=== PATIENT | female | born 1995 ===

== ENCOUNTER 2017-08-22 06:24 | Inpatient (IN) ==
[2017-08-22] MEDS ORDERED: FAMOTIDINE 20 MG/2 ML VIAL IV ONE (07:43)
[2017-08-22] MEDS ORDERED: ceFAZolin 2,000 MG in PREMIX 1 EACH IV ONE (07:43)
[2017-08-22] MEDS ORDERED: CITRIC ACID/SODIUM CITRATE 30 ML UDCUP PO ONE (07:43)
[2017-08-22] MEDS ORDERED: LACTATED RINGERS 1,000 ML IV ONE (07:46)
[2017-08-22] MEDS ORDERED: OXYTOCIN/LR 20 UNIT/1,000 ML BAG IV ONE ×2 (07:59→10:41)
[2017-08-22] MEDS ORDERED: LACTATED RINGERS 1,000 ML IV SCH ×2 (08:00→11:00)
[2017-08-22 08:15] LABS: Basophils % 0.2 % (0.0-0.8); Eosinophils # 0.1 10*3/uL (0.0-0.87); Eosinophils % 1.6 % (0.00-10.9); Hematocrit 33.1 VOL% (35.7-47.0); Hemoglobin 11.3 GM/DL (12.0-16.0); Immature Granulocytes % 0.7 %; Immature Granulocytes Absolute 0.06 #; Lymphocytes # 1.9 10*3/uL (1.4-4.0); Lymphocytes % 23.6 % (21.3-54.2); Mean Corpuscular HGB Conc 34.1 GM/DL (32-36); Mean Corpuscular Hemoglobin 30 PG (27-34); Mean Corpuscular Volume 88.5 FL (87-102); Mean Platelet Volume 12.6 FL (9.6-12.0); Monocytes # 0.5 10*3/uL (0.11-0.8); Monocytes % 6.3 % (1.7-12.7); Neutrophils # 5.5 10*3/uL (1.4-7.4); Neutrophils % 67.6 % (38.7-73.9); Platelet Count 132 T/CUMM (130-400); Red Blood Count 3.74 MC/CUMM (3.8-5.5); Red Cell Distribution Width 13.4 % (9.3-17.3); White Blood Count 8.1 T/CUMM (4-12)
[2017-08-22 08:33] LABS: INR 0.9; PT Patient Result 9.4 SECS; Partial Thromboplastin Time 30.8 SECS (0-40)
[2017-08-22 08:36] LABS: Alanine Aminotransferase 10 U/L (13-56); Albumin 2.7 G/DL (3.4-5.0); Alkaline Phosphatase 176 U/L (45-117); Aspartate Amino Transferase 15 U/L (0-37); Bilirubin,Total < 0.39 MG/DL (0.2-1.0); Blood Urea Nitrogen 10 MG/DL (7-18); Calcium 8.3 MG/DL (8.5-10.1); Glucose 71 MG/DL (74-106); Osmolality,Calculated 273.5 MOS/KG (273-304); Potassium 3.9 MMOL/L (3.5-5.1); Sodium 139 MMOL/L (136-145); Total Protein 6.3 G/DL (6.4-8.3)
[2017-08-22] MEDS ORDERED: BUPIVACAINE SPINAL 0.75% 2 ML AMP SPINAL ONE (09:44)
[2017-08-22 10:40] LABS: Apearance,Urine CLEAR (Clear); Bacteria,Urine Occasional /HPF (Few); Bilirubin,Urine Negative (Negative); Blood, Urine Negative (Negative); Glucose,Urine (UA) Negative (Negative); Ketones,Urine 5 mg/dL (Negative); Mucus,Urine Occasional /LPF (Occasional); Nitrite,Urine Negative (Negative); Protein,Urine Negative; RBC,Urine 2 /HPF (0-4); Squamous Epithelial Cell,Urine Occasional /HPF (0-10); Urine Color Yellow (Yellow); Urine Specific Gravity 1.011 (1.001-1.035); Urine Urobilinogen < 2.0 EU/DL (0.2-1.0); WBC,Urine <1 /HPF (0-6)
[2017-08-22] MEDS ORDERED: RHO(D) IMMUNE GLOBULIN 300 MCG SYRINGE IM ONE (10:41)
[2017-08-22] MEDS ORDERED: SIMETHICONE CHEW 80 MG TABLET PO PRN (10:41)
[2017-08-22] MEDS ORDERED: ACETAMINOPHEN 325 MG TABLET PO PRN (10:41)
[2017-08-22] MEDS ORDERED: ONDANSETRON 4 MG/2 ML VIAL IV PRN (10:41)
[2017-08-22] MEDS ORDERED: MAGNESIUM HYDROXIDE SUSP 30 ML UDCUP PO PRN (10:41)
[2017-08-22] MEDS ORDERED: ONDANSETRON 4 MG/2 ML VIAL ONE (11:00)
[2017-08-22] MEDS ORDERED: ceFAZolin 1,000 MG in SYRINGE 1 EACH IV SCH (11:00)
[2017-08-22] MEDS ORDERED: MORPHINE 10 MG/10 ML VIAL ONE (11:00)
[2017-08-22] MEDS ORDERED: PHENYLEPHRINE 1 MG/10 ML SYRINGE IV ONE (11:01)
[2017-08-22] MEDS: ceFAZolin 1,000 MG in SYRINGE 1 EACH IV SCH (18:01)
[2017-08-22] MEDS ORDERED: miSOPROStol 200 MCG TABLET VAG ONE (18:30)
[2017-08-22 21:27] LABS: Basophils % 0.1 % (0.0-0.8); Eosinophils % 0.2 % (0.00-10.9); Hemoglobin 9.6 GM/DL (12.0-16.0); Immature Granulocytes % 0.5 %; Immature Granulocytes Absolute 0.06 #; Lymphocytes # 1.6 10*3/uL (1.4-4.0); Lymphocytes % 13.2 % (21.3-54.2); Mean Corpuscular HGB Conc 34.3 GM/DL (32-36); Mean Corpuscular Hemoglobin 30 PG (27-34); Mean Corpuscular Volume 88.3 FL (87-102); Mean Platelet Volume 11.9 FL (9.6-12.0); Monocytes # 0.4 10*3/uL (0.11-0.8); Monocytes % 3.3 % (1.7-12.7); Neutrophils # 9.8 10*3/uL (1.4-7.4); Neutrophils % 82.7 % (38.7-73.9); Platelet Count 118 T/CUMM (130-400); Red Blood Count 3.17 MC/CUMM (3.8-5.5); Red Cell Distribution Width 13.3 % (9.3-17.3); White Blood Count 11.8 T/CUMM (4-12)
[2017-08-23] MEDS: ceFAZolin 1,000 MG in SYRINGE 1 EACH IV SCH (02:12)
[2017-08-23 05:10] LABS: Basophils % 0.1 % (0.0-0.8); Eosinophils # 0.1 10*3/uL (0.0-0.87); Eosinophils % 0.9 % (0.00-10.9); Hematocrit 25.4 VOL% (35.7-47.0); Hemoglobin 8.7 GM/DL (12.0-16.0); Immature Granulocytes % 0.4 %; Immature Granulocytes Absolute 0.04 #; Lymphocytes % 21.7 % (21.3-54.2); Mean Corpuscular HGB Conc 34.3 GM/DL (32-36); Mean Corpuscular Hemoglobin 30 PG (27-34); Mean Corpuscular Volume 86.4 FL (87-102); Mean Platelet Volume 12.1 FL (9.6-12.0); Monocytes # 0.5 10*3/uL (0.11-0.8); Monocytes % 5.5 % (1.7-12.7); Neutrophils # 6.6 10*3/uL (1.4-7.4); Neutrophils % 71.4 % (38.7-73.9); Platelet Count 120 T/CUMM (130-400); Red Blood Count 2.94 MC/CUMM (3.8-5.5); Red Cell Distribution Width 13.4 % (9.3-17.3); White Blood Count 9.2 T/CUMM (4-12)
[2017-08-23] MEDS: DOCUSATE SODIUM 100 MG CAPSULE PO SCH ×3 (07:02→21:17)
[2017-08-23] MEDS: MULTIVITAMIN (PRENATAL) TABLET PO SCH (09:33)
[2017-08-23] MEDS: IBUPROFEN 800 MG TABLET PO PRN (11:01)
[2017-08-24] MEDS: IBUPROFEN 800 MG TABLET PO PRN (07:38)
[2017-08-24] MEDS: DOCUSATE SODIUM 100 MG CAPSULE PO SCH (22:20)
[2017-08-25] MEDS: IBUPROFEN 800 MG TABLET PO PRN (04:56)
[2017-08-25 07:43] VITALS: BP 128/77
[2017-08-25] MEDS ORDERED: MEASLES/MUMPS/RUBELLA VACCINE 0.5 ML VIAL SUBCUT ONE (08:03)
[2017-08-25] MEDS: DOCUSATE SODIUM 100 MG CAPSULE PO SCH (08:08)
[2017-08-25] MEDS: MULTIVITAMIN (PRENATAL) TABLET PO SCH (08:08)
== END 2017-08-25 11:42 | disposition home or self-care (01) | DRG 540 ==
LOC: N.LDOUT 06:24 → N.LD 06:30 → N.OB 14:00
PROVIDERS: ADMIT Obstetrics & Gynecology; ATTEND Obstetrics & Gynecology
PROC: LDCSECT (ICD-10-PCS; 2017-08-22 09:00)